=== PATIENT | male | born 1970 | race Caucasian/White ===

== ENCOUNTER → 2017-02-19 | Outpatient (CLI) | payer BC ==
[~2017-02-19] MED LIST: AMOX/CLAV POT 81 TAB PO; MOTRIN600 M1 PO
[2017-02-19 13:45] LABS: HEMOGLOBIN 16.1 g/dL (14.1-18.0); LYMPH # 2.3 K/mm3 (0.7-4.5); LYMPH % 33.4 % (10-50)
[2017-02-19 14:33] LABS: BUN 20 mg/dL (7-18)
[2017-02-19 14:43] LABS: GFR (ESTIMATED) 72 ML/MIN (>60)
[2017-02-20 10:40] LABS: Folate (Folic Acid) 14.1 ng/mL (>3.0)
[2017-02-21 07:39] LABS: Vitamin D, 25-Hydroxy 24.8 ng/mL (30.0-100.0)
== END ==
LOC: LAB 13:17
PROVIDERS: Physician Assistant
DX: E03.9 Hypothyroidism, unspecified (principal); Z00.00 Encounter for general adult medical examination without abnormal findings; E55.9 Vitamin D deficiency, unspecified